=== PATIENT | male | born 1945 | race African-American/Black ===

== ENCOUNTER 2023-10-31 12:57 | Outpatient (AMB) | payer MEDICARE, BC, SELFPAY ==
--- NOTE | 2023-10-31 13:00 | A.OFFVIS_ITS ---
Vital Signs 10/31/23 13:08 Height 5 ft 8 in Weight 186 lb 4 oz BMI 28.3 BP 126/70 Blood Pressure Location Lt brachial Position Sitting Respiration 16 Pulse 72 Pulse Source Pulse Oximeter Pulse Oximetry (%) 97 Oxygen Delivery Method Room Air Intake Visit Reasons: Numbness in Hands & Left Shoulder Pain Intake Note: Patient comes in for initial visit was referred by primary care. Reports pain 3/10. Allergies Penicillins [PENICILLINS] Allergy (Unknown, Verified 10/31/23 13:09) HIVES DIFF BREATHING tetracycline [TETRACYCLINE] Allergy (Unknown, Verified 10/31/23 13:09) ABDOMINAL CRAMPS HPI Comments Details: Owen is very pleasant 78 years old gentleman who presents in my office with complains of shoulder pain bilateral, wrist pain on the left, neck pain and ankle pain. However most severe pain he wants to address is pain in bilateral shoulders and pain in the left wrist. He reports that he can not sleep normally because of his pain he can do activities of daily living, he can take care of himself and he can function normally. He reports movements aggravate his pain. His pain is most severe in the morning and it is 7/10. He also reports pain in bilateral fingers and sensation of swelling in bilateral finger joints. He den ies stiffness of the fingers in the morning. In terms of tissue damage he reports his pain is jumping flushing shooting sensation sharp cutting and laceration sensation. He never had any images of his painful conditions. He never had physical therapy [facility] manipulations no massage therapy. He never had any injections in the past. His past medical history significant for hypertension and TIA x2. He had headaches history. He is suffering from prostate problems mental illness depression and anxiety he has chronic renal disease stage III he is diagnosed with diabetes but it is managed by diet only and his hemoglobin A1c is 6.1. His past surgical history significant for hernia twice 1st it was done in 1967 and then recurrence of the hernia was operated on 2009. Parotid gland surgery was performed in 2011 and tonsillectomy was performed when he was a child in 1962. He denies smoking cigarettes he drinks 1 beer a week he drinks 1 cup of coffee and denies caffeinated soda beverages he denies recreational drugs. Review of Systems Const All systems reviewed & are unremarkable except as noted in HPI and below ENT Reports Normal hearing present Neuro Reports Normal hearing present, Denies Abnormal speech present and Denies Sensory deficit (Neuro) Physical Exam Vital Signs: Last Vital Signs Pulse 72 10/31/23 13:08 Resp 16 10/31/23 13:08 BP 126/70 10/31/23 13:08 Pulse Ox 97 10/31/23 13:08 Oxygen Delivery Method Room Air 10/31/23 13:08 BMI result Body Mass Index 28.3 Const General: no acute distress Nutritional Appearance: average body habitus and well nourished Orientation/consciousness: patient oriented x3 Eyes General: appearance normal, both eyes and all related structures Pupils: Equal, round and reactive pupils present EOM: EOMs intact bilaterally Neck Neck: Yes full ROM Chest Chest palpation & inspection: normal inspection of the chest Resp Effort & Inspection: normal respiratory effort, able to speak in complete sentences, normal respiratory pattern, no audible wheezes and no cough Cardio Jugular venous distension: no JVD GI Inspection: Yes normal to inspection Neuro General: patient oriented x3 and gait normal Cranial nerves: Yes CN's II-XII intact bilaterally, Yes Equal, round and reactive pupils present, Yes Normal hearing present and Yes Ability to bilaterally elevate shoulders present Speech: No Abnormal speech present Gait exam (Neuro): Normal gait present Motor exam (neuro): 5/5 motor strength present throughout Sensory Exam: No Sensory deficit (Neuro) Extrem Other: There is limitation of range of motion of the left wrist. There is limitation of the range of motion of bilateral shoulders more on the left and less on the right. There is tenderness on palpation in the left shoulder. The tenderness mostly in the projection of the anterior and lateral surfaces. No tenderness on palpation of the acromioclavicular joint. There is mild crepitus with range of motion in the left shoulder. The patient is able to lift his arm above the shoulder line however with difficulty. The lateral lift of the arm against resistance is compromise appears to be weaker anterior lift of the arm against resistance is okay appears to be normal in strength. General: No pedal edema Psych Speech and movement: Normal speech and movement present Affect: normal affect Attitude: cooperative Thought process: Normal thought process present Thought content: Normal thought content present Insight: Good insight present (Psych) Judgement: Good judgement present (Psych) Assessment & Plan Assessment & Plan (1) Arthritis of shoulder region, left: Code(s): M19.012 - Primary osteoarthritis, left shoulder Category: Medical (2) Arthritis of shoulder region, right: Code(s): M19.011 - Primary osteoarthritis, right shoulder Category: Medical (3) Wrist pain, left: Code(s): M25.532 - Pain in left wrist Category: Medical Plan This patient presents a challenge in terms of pain management because he is suffering from chronic renal insufficiency stage III. I sent him for x-ray of the shoulder bilateral to evaluate his condition in his shoulder, I also send him for x-ray of the left wrist to evaluate his condition of the wrist. He reports that he fell on the his extended wrist and he might have had a fracture in the past. I will also schedule him for physical therapy to treat his conditions in the shoulders and wrist. I also will request summary of care from the patient in regards of his renal condition from Dr. Chinchilla [facility] nephrology. Upon completion of the physical therapy I I will consider injecting steroids into his shoulder if there are significant arthritis is demonstrated. In terms of medical pain management the patient is suffering from renal insufficiency and NSAIDs are poor options for him. Opioids therapy was discussed with the patient. Risks and benefits were demonstrated to the patient. Unfortunately his condition it maybe only 1 option he has in terms of managing his pain medically. I also explained to him briefly our opioid contract consent and information about chronic opioid therapy. The patient understood and at this time reluctant to consider opioid therapy. Orders: Orders XR shoulder RT min 2V Today M19.011 - Primary osteoarthritis, right shoulder XR wrist LT min 3V Today M25.532 - Pain in left wrist XR shoulder LT min 2V Today M19.012 - Primary osteoarthritis, left shoulder PT Evaluation and Treatment Today M19.011 - Primary osteoarthritis, right shoulder, M19.012 - Primary osteoarthritis, left shoulder, M25.532 - Pain in left wrist Patient Instructions: I here by testify that I spent 45 minutes in conversation with this patient as well as planning his care and organizing this note. Coding Level of Care Code New Pt Level 4 (16622) Diagnoses Arthritis of shoulder region, left M19.012 Arthritis of shoulder region, right M19.011 Wrist pain, left M25.532
[2023-10-31 13:08] VITALS: BP 126/70; PULSE 72; RESP 16; O2SAT 97; BMI 28.3
== END 2023-10-31 13:35 | disposition home or self-care (01) ==
PROVIDERS: PCP Internal Medicine; Visit Provider Anesthesiology
DX: M19.012 Primary osteoarthritis, left shoulder (principal); M19.011 Primary osteoarthritis, right shoulder; M25.532 Pain in left wrist
CPT/HCPCS: 99204

== ENCOUNTER 2023-10-31 12:57 | Outpatient (REF) | payer MEDICARE, BC, SELFPAY ==
--- NOTE | ~2023-10-31 | XR_ITS ---
EXAMINATION: XR LEFT SHOULDER XR RIGHT SHOULDER XR LEFT WRIST CLINICAL INFORMATION: Primary osteoarthritis bilateral shoulders. Patient states that he fell one year ago. Pain in left wrist. COMPARISON: None available. TECHNIQUE: 4 views of the left wrist. 4 views of each shoulder. FINDINGS: LEFT WRIST: Advanced degenerative changes on limited views of the second and third metacarpophalangeal joints could be evaluated with dedicated views of the hands. Moderate degenerative changes in the first carpometacarpal joint with joint space narrowing and hypertrophic change. Radiopaque marker placed by technologist to indicate the area of concern as indicated by the patient along the dorsal aspect of the wrist and demonstrates focal swelling of the subjacent soft tissues. Narrowing of the radiocarpal space. Subtle somewhat linear/calcific focus in the soft tissues just distal to the ulnar styloid of indeterminate etiology. Differential considerations include chronic degenerative process, chondrocalcinosis, although avulsion fracture fragment of indeterminate age could also be considered in the appropriate clinical setting. LEFT SHOULDER: Faint soft tissue calcification adjacent to the proximal humeral shaft. Amorphous calcifications adjacent to the humeral head suggest calcific tendinitis. Mild narrowing of the subacromial space. Moderate degenerative changes in the glenohumeral joint with hypertrophic change and narrowing. Moderate degenerative changes in the acromioclavicular joint. RIGHT SHOULDER: Narrowing of the subacromial space with subacromial spurs. Amorphous calcifications adjacent to the humeral head suggest calcific tendinitis. Moderate degenerative changes in the glenohumeral joint with hypertrophic change and narrowing. Moderate degenerative changes in the acromioclavicular joint. XR/XR shoulder LT min 2V IMPRESSION: 1. Moderate degenerative changes bilateral shoulders. 2. Amorphous calcifications adjacent to the humeral head suggest calcific tendinitis. 3. Moderate degenerative changes bilateral acromioclavicular joints. 4. Advanced degenerative changes on limited views of the second and third metacarpophalangeal joints could be evaluated with dedicated views of the hands. 5. Subtle somewhat linear/calcific focus in the soft tissues just distal to the ulnar styloid of indeterminate etiology. Differential considerations include chronic degenerative process, chondrocalcinosis, although avulsion fracture fragment of indeterminate age could also be considered in the appropriate clinical setting.
--- NOTE | ~2023-10-31 | XR_ITS ---
EXAMINATION: XR LEFT SHOULDER XR RIGHT SHOULDER XR LEFT WRIST CLINICAL INFORMATION: Primary osteoarthritis bilateral shoulders. Patient states that he fell one year ago. Pain in left wrist. COMPARISON: None available. TECHNIQUE: 4 views of the left wrist. 4 views of each shoulder. FINDINGS: LEFT WRIST: Advanced degenerative changes on limited views of the second and third metacarpophalangeal joints could be evaluated with dedicated views of the hands. Moderate degenerative changes in the first carpometacarpal joint with joint space narrowing and hypertrophic change. Radiopaque marker placed by technologist to indicate the area of concern as indicated by the patient along the dorsal aspect of the wrist and demonstrates focal swelling of the subjacent soft tissues. Narrowing of the radiocarpal space. Subtle somewhat linear/calcific focus in the soft tissues just distal to the ulnar styloid of indeterminate etiology. Differential considerations include chronic degenerative process, chondrocalcinosis, although avulsion fracture fragment of indeterminate age could also be considered in the appropriate clinical setting. LEFT SHOULDER: Faint soft tissue calcification adjacent to the proximal humeral shaft. Amorphous calcifications adjacent to the humeral head suggest calcific tendinitis. Mild narrowing of the subacromial space. Moderate degenerative changes in the glenohumeral joint with hypertrophic change and narrowing. Moderate degenerative changes in the acromioclavicular joint. RIGHT SHOULDER: Narrowing of the subacromial space with subacromial spurs. Amorphous calcifications adjacent to the humeral head suggest calcific tendinitis. Moderate degenerative changes in the glenohumeral joint with hypertrophic change and narrowing. Moderate degenerative changes in the acromioclavicular joint. XR/XR wrist LT min 3V IMPRESSION: 1. Moderate degenerative changes bilateral shoulders. 2. Amorphous calcifications adjacent to the humeral head suggest calcific tendinitis. 3. Moderate degenerative changes bilateral acromioclavicular joints. 4. Advanced degenerative changes on limited views of the second and third metacarpophalangeal joints could be evaluated with dedicated views of the hands. 5. Subtle somewhat linear/calcific focus in the soft tissues just distal to the ulnar styloid of indeterminate etiology. Differential considerations include chronic degenerative process, chondrocalcinosis, although avulsion fracture fragment of indeterminate age could also be considered in the appropriate clinical setting.
== END 2023-10-31 12:58 | disposition home or self-care (01) ==
LOC: HO.LAB 12:57
PROVIDERS: PCP Internal Medicine; Visit Provider Anesthesiology
DX: M25.532 Pain in left wrist (principal); M19.012 Primary osteoarthritis, left shoulder; M19.011 Primary osteoarthritis, right shoulder
CPT/HCPCS: 73030; 73110; 99202

== ENCOUNTER 2023-12-05 12:53 | Outpatient (AMB) | payer MEDICARE, BC, SELFPAY ==
--- NOTE | 2023-12-05 13:00 | MHC.OFFVIS ---
Vital Signs 12/05/23 13:03 Height 5 ft 8 in Weight 187 lb 4 oz BMI 28.5 BP 114/75 Blood Pressure Location Rt brachial Position Sitting Pulse 79 Pulse Source Pulse Oximeter Pulse Oximetry (%) 97 Oxygen Delivery Method Room Air Intake Visit Reasons: 5 week follow up Intake Note: Owen is a 78 year old male who presents to the office today for a 5 week follow up. Allergies Penicillins [PENICILLINS] Allergy (Unknown, Verified 12/05/23 13:03) HIVES DIFF BREATHING tetracycline [TETRACYCLINE] Allergy (Unknown, Verified 12/05/23 13:03) ABDOMINAL CRAMPS HPI Comments Details: Owen is back in my office to discuss results of the x-rays which I ordered for him. The full report is as below. He has significant arthritis in bilateral glenohumeral joints. He also has calcific tendinitis in some ligaments surrounding the shoulders. He would be a good candidate for intra-articular steroid injections, however patient is very leery to go for the intra-articular shoulder steroid injections. When he expressed his concerns I offered him diagnostic shoulder without any steroid injections, I also ordered platelet rich plasma and briefly explained to him that it is not covered by insurance. He is scheduled to start physical therapy at the beginning of December. He wants to try and see how physical therapy will affect his pain. I encouraged him to consider physical therapy as the main modality of treatment. However physical therapy will not be helping him he is welcome to come back and reconsider on injections. As of his concerns of the left wrist there are some changes which would be better assessed by a specialist. I will refer him to our hand surgeon Dr. Marguerite Pelayo. Prior: Complains on shoulder pain bilateral, wrist pain on the left, neck pain and ankle pain. However most severe pain he wants to address is pain in bilateral shoulders and pain in the left wrist. He reports that he can not sleep normally because of his pain he can do activities of daily living, he can take care of himself and he can function normally. Past medical history significant for hypertension, TIA x2, chronic renal insufficiency, diabetes, hemoglobin A1c 6.2. Review of Systems Const All systems reviewed & are unremarkable except as noted in HPI and below ENT Reports Normal hearing present Neuro Reports Normal hearing present, Denies Abnormal speech present and Denies Sensory deficit (Neuro) Physical Exam Vital Signs: Last Vital Signs Pulse 79 12/05/23 13:03 BP 114/75 12/05/23 13:03 Pulse Ox 97 12/05/23 13:03 Oxygen Delivery Method Room Air 12/05/23 13:03 BMI result Body Mass Index 28.5 Const General: no acute distress Nutritional Appearance: average body habitus and well nourished Orientation/consciousness: patient oriented x3 Eyes General: appearance normal, both eyes and all related structures Pupils: Equal, round and reactive pupils present EOM: EOMs intact bilaterally Neck Neck: Yes full ROM Chest Chest palpation & inspection: normal inspection of the chest Resp Effort & Inspection: normal respiratory effort, able to speak in complete sentences, normal respiratory pattern, no audible wheezes and no cough Cardio Jugular venous distension: no JVD GI Inspection: Yes normal to inspection Neuro General: patient oriented x3 and gait normal Cranial nerves: Yes CN's II-XII intact bilaterally, Yes Equal, round and reactive pupils present, Yes Normal hearing present and Yes Ability to bilaterally elevate shoulders present Speech: No Abnormal speech present Gait exam (Neuro): Normal gait present Motor exam (neuro): 5/5 motor strength present throughout Sensory Exam: No Sensory deficit (Neuro) Extrem Other: There is limitation of range of motion of the left wrist. There is limitation of the range of motion of bilateral shoulders more on the left and less on the right. There is tenderness on palpation in the left shoulder. The tenderness mostly in the projection of the anterior and lateral surfaces. No tenderness on palpation of the acromioclavicular joint. There is mild crepitus with range of motion in the left shoulder. The patient is able to lift his arm above the shoulder line however with difficulty. The lateral lift of the arm against resistance is compromise appears to be weaker anterior lift of the arm against resistance is okay appears to be normal in strength. General: No pedal edema Psych Speech and movement: Normal speech and movement present Affect: normal affect Attitude: cooperative Thought process: Normal thought process present Thought content: Normal thought content present Insight: Good insight present (Psych) Judgement: Good judgement present (Psych) Results Reviewed Results Reviewed: XR LEFT SHOULDER XR RIGHT SHOULDER XR LEFT WRIST CLINICAL INFORMATION: Primary osteoarthritis bilateral shoulders. Patient states that he fell one year ago. Pain in left wrist. COMPARISON: None available. TECHNIQUE: 4 views of the left wrist. 4 views of each shoulder. FINDINGS: LEFT WRIST: Advanced degenerative changes on limited views of the second and third metacarpophalangeal joints could be evaluated with dedicated views of the hands. Moderate degenerative changes in the first carpometacarpal joint with joint space narrowing and hypertrophic change. Radiopaque marker placed by technologist to indicate the area of concern as indicated by the patient along the dorsal aspect of the wrist and demonstrates focal swelling of the subjacent soft tissues. Narrowing of the radiocarpal space. Subtle somewhat linear/calcific focus in the soft tissues just distal to the ulnar styloid of indeterminate etiology. Differential considerations include chronic degenerative process, chondrocalcinosis, although avulsion fracture fragment of indeterminate age could also be considered in the appropriate clinical setting. LEFT SHOULDER: Faint soft tissue calcification adjacent to the proximal humeral shaft. Amorphous calcifications adjacent to the humeral head suggest calcific tendinitis. Mild narrowing of the subacromial space. Moderate degenerative changes in the glenohumeral joint with hypertrophic change and narrowing. Moderate degenerative changes in the acromioclavicular joint. RIGHT SHOULDER: Narrowing of the subacromial space with subacromial spurs. Amorphous calcifications adjacent to the humeral head suggest calcific tendinitis. Moderate degenerative changes in the glenohumeral joint with hypertrophic change and narrowing. Moderate degenerative changes in the acromioclavicular joint. IMPRESSION: 1. Moderate degenerative changes bilateral shoulders. 2. Amorphous calcifications adjacent to the humeral head suggest calcific tendinitis. 3. Moderate degenerative changes bilateral acromioclavicular joints. 4. Advanced degenerative changes on limited views of the second and third metacarpophalangeal joints could be evaluated with dedicated views of the hands. 5. Subtle somewhat linear/calcific focus in the soft tissues just distal to the ulnar styloid of indeterminate etiology. Differential considerations include chronic degenerative process, chondrocalcinosis, although avulsion fracture fragment of indeterminate age could also be considered in the appropriate clinical setting. 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 He is reluctant to go for steroid injections. I offered him diagnostic shoulder injections versus PRP injections in bilateral shoulders. The patient wants to try physical therapy 1st. His physical therapy scheduled at the beginning of December of 2023. He will be evaluated and treated with physical therapy. If physical therapy will not be helping his pain he is welcome to come back. As of his wrist pain I will make a referral to Dr. Marguerite Pelayo. Orders: Referrals Orthopedics Referral M25.532 - Pain in left wrist Patient Instructions: I here by testify that I spent 32 minutes in conversation with this patient as well as planning his care and organizing this note. Coding Level of Care Code Est Pt Level 4 (19812) Diagnoses Arthritis of shoulder region, left M19.012 Arthritis of shoulder region, right M19.011 Wrist pain, left M25.532
[2023-12-05 13:03] VITALS: BP 114/75; PULSE 79; O2SAT 97; BMI 28.5
== END 2023-12-05 13:20 | disposition home or self-care (01) ==
PROVIDERS: PCP Internal Medicine; Visit Provider Anesthesiology
DX: M19.012 Primary osteoarthritis, left shoulder (principal); M19.011 Primary osteoarthritis, right shoulder; M25.532 Pain in left wrist
CPT/HCPCS: 99214

== ENCOUNTER → 2023-12-05 12:53 | Outpatient (BNVA) | payer MEDICARE, BC, SELFPAY | PROVIDERS: PCP Internal Medicine; Visit Provider Anesthesiology | DX: M19.012 Primary osteoarthritis, left shoulder (principal); M19.011 Primary osteoarthritis, right shoulder; M25.532 Pain in left wrist | CPT/HCPCS: 99212 ==

== ENCOUNTER 2023-12-26 09:49 | Outpatient (REF) | payer MEDICARE, BC, SELFPAY ==
--- NOTE | ~2023-12-26 | XR_ITS ---
EXAMINATION: XR WRIST, LEFT CLINICAL INFORMATION: Left wrist pain. COMPARISON: None available. TECHNIQUE: PA, lateral, and oblique views of the left wrist. FINDINGS: There is mild osteoarthritis in the left wrist at the radiocarpal, triscaphe, and 1st CMC joints, characterized by joint space narrowing and marginal osteophytes. No erosions are identified. Mild dorsal carpal boss. More moderate osteoarthritis is present in the 3rd MCP joint and, to a lesser extent, the 2nd MCP joint, with prominent marginal osteophytes, nonuniform joint space narrowing and arteriosclerosis. More mild osteoarthritis in the other MCP joints and moderate osteoarthritis at the thumb IP joint. No fractures. Soft tissues are unremarkable. XR/XR wrist LT min 3V IMPRESSION: [id number] multifocal osteoarthritis in the left wrist and hand, most notably at the 3rd and 2nd MCP joints. Electronically signed by: John Baez MD 01/18/2024 10:10 PM EDT
== END 2023-12-26 09:50 | disposition home or self-care (01) ==
LOC: HO.HOSX 09:49
DX: M19.032 Primary osteoarthritis, left wrist (principal)
CPT/HCPCS: 73110; 99202

== ENCOUNTER 2023-12-26 11:18 | Outpatient (AMB) | payer MEDICARE, BC, SELFPAY ==
--- OUTSIDE RECORDS SUMMARY | 2023-12-26 11:19 | XMS_ITS | Continuity of Care Document ---
Author Organization [facility] ter Address [address] [place] [id number]- Care Team Providers Care Outsole Caser Name Role Phone Julianne Suero MD Primary Care Physician [place] [facility] [place] - 05/13/[address] [address]- [facility] Attending Physician: Monique Mcclendon Allergies, Adverse Reactions, Alerts Substance Reaction Severity Status tetracycline Gastrointestinal upset Activ e penicillin throat closes respiratory issues Swelling Active Medications acetaminophen-oxycodone 325 mg-5 mg oral tablet 2 tablet, By Mouth, Every 4 hours, PRN Pain , Moderate, May take less, # 30 tablet, 0 Refills, Maintenance, Tablet Start Date: 08/30/09 Status: Ordered amLODIPine 2.5 mg oral tablet 2.5 mg, 1, tablet, By Mouth, Daily, Refills 0, Maintenance, 08/24/17 15:46:38 EDT Start Date: 08/24/17 Status: Ordered atorvastatin 20 mg oral tablet 1 tablet = 20 mg, By Mouth, Daily, 0 Refills, Maintenance Start Date: 08/24/17 Status: Ordered Lupillo Aspirin Regimen 81 mg oral delayed release tablet 1 tablet = 81 mg, By Mouth, Daily, 0 Refills, Maintenance, 08/24/17 15:47:03 EDT Start Date: 08/24/17 Status: Ordered Colace sodium 100 mg oral capsule 1 capsule = 100 mg, By Mouth, 2 times a day, Hold for loose stool or diarrhea, # 40 capsule, 0 Refills, Maintenance, Capsule Start Date: 08/30/09 Status: Ordered Flonase 0.05 mg/inh nasal spray 1, sprays, Nasal, Daily, 16, Gm, 0, 0, 09/03/06 8:30:34, Print VALENTINA Number, [id number], Constant Indicator Start Date: 09/03/06 Status: Ordered hydrochlorothiazide 25 mg oral tablet 25 mg, 1, tablet, By Mouth, Daily, Refills 0, Maintenance, 08/24/17 15:46:07 EDT Start Date: 08/24/17 Status: Ordered Lumigan 0.01% ophthalmic solution 1 drops, Eyes, Both, Daily before dinner, 0 Refills, Maintenance, 08/24/17 15:47:13 EDT Start Date: 08/24/17 Status: Ordered Plavix 75 mg oral tablet 75 mg, 1, tablet, By Mouth, Daily, # 21 tablet, Refills 0, Tot. Refills 0, Maintenance, 05/08/18 14:24:42 EST, Route to Pharmacy Electronically, [id number], [facility]/pharmacy #[id number] Start Date: 05/08/18 Stop Date: 05/29/18 Status: Ordered Wellbutrin XL = 150 mg, By Mouth, Daily, 0 Refills, Maintenance, 05/08/18 9:10:51 EST Start Date: 05/08/18 Status: Ordered Problem List Condition Effective Dates Status Health Status Inform ant Right shoulder tendonitis(Confirmed) Active Social History Social History Type Response Smoking Status Never smoker entered on: 08/24/17 Sex
--- OUTSIDE RECORDS SUMMARY | 2023-12-26 11:19 | XMS_ITS | Continuity of Care Document ---
Author Organization [facility] ter Address [address] [place] [id number]- Care Team Providers Care Dewatering Filtering Supervisor Name Role Phone Nimo ROSALES, Julianne Durant Primary Care Physician [place] [facility] [place] 06/09/[address] [address]- [facility] Attending Physician: Manohar Garcia MD Allergies, Adverse Reactions, Alerts Substance Reaction Severity [...] 0, 0, 09/03/06 8:30:34, Print VALENTINA Number, [id number], Constant Indicator Start Date: 09/03/06 Status: Ordered [...] 05/08/18 14:24:42 EST, Route to Pharmacy Electronically, [id number], [facility]/pharmacy #[id number] Start Date: 05/08/18 Stop Date: 05/29/18 Status: Ordered Wellbutrin XL = 150 mg, By Mouth, Daily, 0 Refills, Maintenance, 05/08/18 9:10:51 EST Start Date: 05/08/18 Status: Ordered Problem List Condition Effective Dates Status Health Status Inform ant Right shoulder tendonitis(Confirmed) Active Social History Social History Type Response Smoking Status Never smoker entered on: 08/24/17 Sex
--- OUTSIDE RECORDS SUMMARY | 2023-12-26 11:19 | XMS_ITS | Continuity of Care Document ---
Author Organization [facility] ter Address [address] [place] [address]- Care Team Providers Care Crime Scene Examiner Name Role Phone Nimo ROSALES, Julianne Durant Primary Care Physician Encounter [facility] [place] Date(s): 12/06/21 - 12/06/[address] [address] Discharge Disposition: A-D/C Home Attending Physician: Lino Gordillo MD Admitting Physician: Lino Gordillo MD Referring Physician: Robert Lang MD Allergies, Adverse Reactions, Alerts Substance Reaction Severity Status tetracycline Gastrointestinal upset Activ e penicillin throat closes respiratory issues Swelling Active Medications amLODIPine 2.5 mg oral tablet 2.5 mg, 1, tablet, By Mouth, Daily, # 90 tablet, Refills 0, Maintenance, 12/06/21 7:12:00 EDT, Partial fill upon patient request if the prescription is for a schedule II opioid drug. Start Date: 12/06/21 Status: Ordered atorvastatin 20 mg oral tablet 1 tablet = 20 mg, By Mouth, Daily, 0 Refills, Maintenance Start Date: 08/24/17 Status: Ordered Lupillo Aspirin Regimen 81 mg oral delayed release tablet 1 tablet = 81 mg, By Mouth, Daily, 0 Refills, Maintenance, 08/24/17 15:47:03 EDT Start Date: 08/24/17 Status: Ordered Claritin-D 1 tablet, By Mouth, Every 12 hours, 0 Refills, Maintenance, 12/06/21 7:16:00 EDT, Partial fill uponpatient request if the prescription is for a schedule II opioid drug. Start Date: 12/06/21 Status: Ordered CoQ10 = 300 mg, By Mouth, Daily, 0 Refills, Maintenance, 12/06/21 7:16:00 EDT, Partial fill upon patient request if the prescription is for a schedule II opioid drug. Start Date: 12/06/21 Status: Ordered escitalopram 5 mg oral tablet 1 tablet = 5 mg, By Mouth, Daily, # 90 tablet, 0 Refills, Maintenance, 12/06/21 7:12:00 EDT, Tablet, Partial fill upon patient request if the prescription is for a schedule II opioid drug. Start Date: 12/06/21 Status: Ordered famotidine 20 mg oral tablet 20 mg, 1, tablet, By Mouth, Daily, # 30 tablet, Refills 0, Maintenance, 12/06/21 7:14:00 EDT, Partial fill upon patient request if the prescription is for a schedule II opioid drug. Start Date: 12/06/21 Status: Ordered Farxiga 10 mg oral tablet 1 tablet = 10 mg, By Mouth, Daily, # 90 tablet, 0 Refills, Maintenance, 12/06/21 7:14:00 EDT, Tablet, Partial fill upon patient request if the prescription is for a schedule II opioid drug. Start Date: 12/06/21 Status: Ordered Flonase 50 mcg/inh nasal spray 1 sprays, Nares, Both, 2 times a day, 0 Refills, Maintenance, 12/06/21 7:15:00 EDT, [place], Partial fill upon patient request if the prescription is for a schedule II opioid drug. Start Date: 12/06/21 Status: Ordered hydrochlorothiazide-losartan 12.5 mg-50 mg oral tablet 1 tablet, By Mouth, Daily, # 90 tablet, 0 Refills, Maintenance, 12/06/21 7:13:00 EDT, Tablet, Partial fill upon patient request if the prescription is for a schedule II opioid drug. Start Date: 12/06/21 Status: Ordered Lumigan 0.01% ophthalmic solution 1 drops, Eyes, Both, Daily before dinner, 0 Refills, Maintenance, 08/24/17 15:47:13 EDT Start Date: 08/24/17 Status: Ordered metoprolol 25 mg oral tablet, extended release 25 mg, 1, tablet, By Mouth, Daily, # 90 tablet, Refills 0, Maintenance, 12/06/21 7:14:00 EDT, Partial fill upon patient request if the prescription is for a schedule II opioid drug. Start Date: 12/06/21 Status: Ordered Multivitamin 1 tablet, By Mouth, Daily, 0 Refills, Maintenance, 12/06/21 7:16:00 EDT, Partial fill upon patient request if the prescription is for a schedule II opioid drug. Start Date: 12/06/21 Status: Ordered Myrbetriq 25 mg oral tablet, extended release 1 tablet = 25 mg, By Mouth, Daily, do not crush or chew, # 30 tablet, 0 Refills, Maintenance, 12/06/21 7:13:00 EDT, ER Tablet, Partial fill upon patient request if the prescription is for a schedule II opioid drug. Start Date: 12/06/21 Status: Ordered sildenafil 50 mg oral tablet 1 tablet = 50 mg, By Mouth, Daily, PRN for erectile dysfunction, 0 Refills, Maintenance, 12/06/21 7:18:00 EDT, Tablet, Partial fill upon patient request if the prescription is for a schedule II opioid drug. Start Date: 12/06/21 Status: Ordered Wellbutrin XL = 150 mg, By Mouth, Daily, 0 Refills, Maintenance, 05/08/18 9:10:51 EST Start Date: 05/08/18 Status: Ordered Problem List Condition Effective Dates Status Health Status Inform ant Stage 3 chronic kidney disease(Confirmed) Active Right shoulder tendonitis(Confirmed) Active Hyperlipidemia(Confirmed) Active Hypertension(Confirmed) Active Obese class I(Confirmed) Active Type 2 diabetes mellitus(Confirmed) Active Vital Signs Most recent to oldest [Reference Range]: 1 2 3 Height 169 cm (12/06/21 6:45 AM) 169 cm (12/06/21 6:30 AM) Weight 88.6 kg (12/06/21 6:45 AM) 88.6 kg (12/06/21 6:30 AM) Oxygen Saturation [94-100 %] 95 % (12/06/21 12:30 PM) 95 % (12/06/21 12:00 PM) 96 % (12/06/21 11:30 AM) Pulse Rate [55-90 bpm] 61 bpm (12/06/21 7:00 AM) 71 bpm (12/06/21 6:45 AM) Body Mass Index [18.5-24.99] 31.02 *>HHI* (12/06/21 6:45 AM) Blood Pressure [90-138/55-84 mm Hg] 117/85mm Hg (8/2/22 12:30 PM) 120/82mm Hg (12/06/21 12:00 PM) 123/94mm Hg (12/06/21 11:30 AM) Respiratory Rate [16-30 br/min] 16 br/min (12/06/21 12:30 PM) 16 br/min (12/06/21 12:00 PM) 18 br/min (12/06/21 11:30 AM) Temperature [96.8-100.4 DegF] 97.5 DegF (12/06/21 6:45 AM) Mode of Delivery (Oxygen) Room air (12/06/21 12:30 PM) Room air (12/06/21 12:00 PM) Room air (12/06/21 11:30 AM) Blood pressure sites Arm, left (12/06/21 12:30 PM) Arm, left (12/06/21 12:00 PM) Arm, left (12/06/21 11:30 AM) Temperature Route Temporal (12/06/21 6:45 AM) Dry Weight 88.6 kg (12/06/21 6:30 AM) Weight Obtained Via Standing scale (12/06/21 6:45 AM) Standing scale (12/06/21 6:30 AM) Dry Weight Obtained Via Standing scale (12/06/21 6:30 AM) Social History Social History Type Response Smoking Status Never smoker entered on: 08/24/17 Sex
--- OUTSIDE RECORDS SUMMARY | 2023-12-26 11:19 | XMS_ITS | Continuity of Care Document ---
Author Organization [facility] ter Address [address] [place] [id number]- Care Team Providers Care Telephone Sterilizer Name Role Phone Julianne Suero MD Primary Care Physician [place] [facility] [place](s[place] 04/19/20 - 04/19/[address] [address]- Discharge Disposition: A-D/C Home Attending Physician: Manohar Garcia MD Admitting Physician: Manohar Garcia MD Referring Physician: Manohar Garcia MD Allergies, Adverse Reactions, [...] 0, 0, 09/03/06 8:30:34, Print VALENTINA Number, [id number], Constant Indicator Start Date: 09/03/06 Status: Ordered [...] 05/08/18 14:24:42 EST, Route to Pharmacy Electronically, [id number], [facility]/pharmacy #[id number] Start Date: 05/08/18 Stop Date: 05/29/18 Status: Ordered Wellbutrin XL = 150 mg, By Mouth, Daily, 0 Refills, Maintenance, 05/08/18 9:10:51 EST Start Date: 05/08/18 Status: Ordered Problem List Condition Effective Dates Status Health Status Inform ant Right shoulder tendonitis(Confirmed) Active Vital Signs Most recent to oldest [Reference Range]: 1 2 3 Height 170 cm (04/19/20 9:02 AM) Oxygen Saturation [94-100 %] 97 % (04/19/20 11:17 AM) 96 % (04/19/20 11:09 AM) 100 % (04/19/20 9:02 AM) Pulse Rate [55-90 bpm] 74 bpm (04/19/20 9:02 AM) Blood Pressure [90-138/55-84 mm Hg] 117/80mm Hg (04/19/20 11:17 AM) 110/77mm Hg (04/19/20 11:09 AM) 146/88mm Hg *H* (04/19/20 9:02 AM) Respiratory Rate [16-30 br/min] 17 br/min (04/19/20 11:17 AM) 16 br/min (04/19/20 11:09 AM) 20 br/min (04/19/20 9:02 AM) Temperature [96.8-100.4 DegF] 97.7 DegF (04/19/20 9:02 AM) Mode of Delivery (Oxygen) Room air (04/19/20 11:17 AM) Room air (04/19/20 11:09 AM) Room air (04/19/20 9:02 AM) Blood pressure sites Arm, left (04/19/20 11:17 AM) Arm, left (04/19/20 11:09 AM) Arm, left (04/19/20 9:02 AM) Temperature Route Temporal (04/19/20 9:02 AM) Dry Weight 83.5 kg (04/19/20 9:02 AM) Dry Weight Obtained Via Patient/family s tated (04/19/20 9:02 AM) Social History Social History Type Response Smoking Status Never smoker entered on: 08/24/17 Sex
--- NOTE | 2023-12-26 11:27 | MHC.OFFVIS ---
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 He reports he is currently doing PT for his left shoulder and says it has been helping his left wrist. Intermittent discomfort on the distal radial aspect throughout the day with ROM or when writing and intermittent tingling that does not happen often he says. The pain is worse in the morning time however patient states he sleeps with his hand tucked under his face and believes this could be the cause. 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 The patient reports that he tripped and fell onto his left hand at approximately that time but he was not evaluated at that time. The patient does report that it has gradually improved over that time, to the point where he reports he is experiencing discomfort, but not pain at this time. The patient reports that wrist ROM, particularly extension, worsens his discomfort, but he does not experience pain at rest. Patient denies any numbness or tingling in the LUE. No other acute compaints or concerns at this time. [facility] Social History (Updated 12/26/23 @ 11:40 by BRENDA Frost) Alcohol intake: never Patient Tobacco Use Status: Never used Tobacco Current occupational status: retired Review of Systems Const All systems reviewed & are unremarkable except as noted in HPI and below Physical Exam Extrem Other: Patient is alert, oriented, and in no acute distress. Neuro: Patient reports normal sensation to the tips of all digits of the left upper extremity at this time. Vascular: Cap refill brisk Pain: Patient reports no tenderness to palpation of the L wrist Patient does report pain with active ROM of the L wrist, namely extension ROM: Patient is able to flex the L wrist to approximately 45 degrees beyond neutral without difficulty, but reports increasing discomfort with this motion Patient is able to extend the L wrist to approximately 30 degrees beyond neutral without difficulty, but reports increasing discomfort this motion Skin: No lacerations or abrasions. General: No ecchymosis, erythema, or evidence of infection. Psych: Appears grossly normal Affect normal Attitude cooperative Results Reviewed Results Reviewed: X-rays obtained in the office today and independently reviewed by me, Clemente Lerner PA-C, demonstrate moderate arthritic changes in the radioscaphoid joint, with potential mild arthritic changes in the radiolunate joint. No fracture or acute bony abnormality noted. Assessment & Plan Assessment & Plan (1) Primary osteoarthritis, left wrist: Code(s): M19.032 - Primary osteoarthritis, left wrist Category: Medical Plan 1. Left wrist osteoarthritis Ongoing for approximately 1 year Symptoms improving Treatment options available for wrist osteoarthritis are discussed with the patient, and he would like to proceed with conservative management: At this time, the patient is referred to OT hand therapy for strengthening, ROM, and stabilization of the L wrist Patient is also provided with a velcro wrist splint to wear if he is noticing any particular worsening or acute exacerbation of symptoms, but patient is advised he should not be wearing this wrist brace at baseline, and then he should be removing it regularly to perform [id number] exercises. Patient is educated that he does not need an acute follow-up with us, but if in 8-12 weeks he notices no or minimal relief with occupational therapy and bracing, he can call to book a follow-up appointment for discussion of further treatment options Patient is amenable to this plan Patient will follow-up p.r.n. with any acute concerns. Orders: Orders XR wrist LT min 3V Today M25.532 - Pain in left wrist OT Evaluation and Treatment 11/27/23 M19.011 - Primary osteoarthritis, right shoulder, M19.012 - Primary osteoarthritis, left shoulder, M25.532 - Pain in left wrist Coding Level of Care Code New Pt Level 3 (35993) Diagnoses Primary osteoarthritis, left wrist M19.032
== END 2023-12-26 12:04 | disposition home or self-care (01) ==
LOC: HO.HOS 11:18
PROVIDERS: PCP Internal Medicine
DX: M19.032 Primary osteoarthritis, left wrist (principal)
CPT/HCPCS: 99203

== ENCOUNTER 2024-01-10 15:00 | Outpatient (RCR) | payer MEDICARE, BC, SELFPAY ==
--- NOTE | 2023-12-13 10:35 | MHC.PT.EP ---
[facility] [place] [facility] [place] [facility] [place] [facility] [address] Renny Slade [address] [phone] F: [phone] F: [phone] F: [phone] F: [phone] Physical Therapy Plan of Care Date of Evaluation: 12/13/23 Date of Surgery: n/a Diagnosis: OA of L shoulder Assessment: Patient is a 78 year old male presenting to PT with complaints of pain in his L shoulder. Pt reports onset of pain began a whole ago due to arthritis. He presents today with impairments in pain, ROM, shoulder strength, posture, tenderness to palpation. Pt's current occupation is retired, with baseline physical activities including ADLs, reaching OH, yardwork, yoga. Pt expresses correction goal of reducing pain, and is motivated to work towards this in PT. Clinical presentation today is most consistent with signs and sx associated with L shoulder pain and pt will benefit from skilled PT 2 week x 4 weeks to address the following problems and impairments noted upon evaluation: pain, ROM, shoulder strength, posture, tenderness to palpation. These problems limit the patient with the following functional activities: ADLs, reaching OH, yardwork, yoga. The prescribed treatment plan of care is medically necessary. Co-morbidities of DM, hx cancer, hx stroke minor with no functional deficits were identified and taken into considerations of plan of care. Pt was educated on HEP, role of PT, prognosis, POC. Frequency and Duration: The patient will be seen 2 x week x 4 weeks Short Term Goals: Pt will demonstrate symmetrical ROM in 2 weeks. Pt will demonstrate improved L shoulder MMT strength by 1/3 grade in 2 weeks. Pt will demonstrate improved posture with min to no cues during sessions in 2 weeks. Nursing Home Goals: Pt will demonstrate improved SPADI score by 13 points in 4 weeks for improved functional mobility. Pt will demonstrate ability to complete yardwork with min to no pain in 4 weeks for return to PLOF. Pt will demonstrate ability to reach with min to no pain in 4 weeks for improved tolerance to self care. Treatment Plan: Modalities to reduce pain, spasms and effusion. Manual therapy to restore motion and function. Therapeutic exercise to improve strength and flexibility. Neuromuscular re-education for posture and balance. Therapeutic activities to return to functional activities of daily living. Electronically signed by: Keiry Lorenzo, PT, DPT, ATC Please sign and return to therapist. Thank you for your referral.
--- NOTE | 2024-01-15 08:29 | MHC.PT.DC ---
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 Therefore pt to be d/c at this time. Electronically signed by: Keiry Lorenzo, PT, DPT, ATC Please sign and return to therapist. Thank you for your referral.
== END 2024-01-15 08:29 | disposition home or self-care (01) ==
LOC: HO.PTCHIC 15:00
PROVIDERS: PCP Internal Medicine; Visit Provider Anesthesiology
DX: M25.532 Pain in left wrist (principal); M19.011 Primary osteoarthritis, right shoulder; M19.012 Primary osteoarthritis, left shoulder
CPT/HCPCS: 97110; 97161